=== PATIENT | female | born 1930 | race Caucasian/White ===

== ENCOUNTER 2018-10-12 09:32 | Emergency (ER) | payer OTHER ==
[2018-10-12] MEDS ORDERED: ONDANSETRON 4 MG/2 ML VIAL IVP ONE (09:45)
[2018-10-12 10:03] LABS: PLATELET COUNT 307 10^3/uL (150-400)
[2018-10-12] MEDS ORDERED: IOPAMIDOL (ISOVUE-300) 100 ML BTL ONE (10:10)
--- NOTE | 2018-10-12 11:52 | EDPHY ---
H & P Stated Complaint: Nausea/weakness Time Seen by Provider: 10/12/18 09:38 HPI/ROS: CHIEF COMPLAINT: "I'm dizzy" HISTORY OF PRESENT ILLNESS: 88-year-old female history of dementia, arrives via ambulance with her who provides history. They arrived from the home. reports that the patient awoke this morning repeatedly saying "I' m dizzy, I'm dizzy". Unable provide further information. notes that since approximately January 2018 patient has had increased difficulty getting around home, decreased nutrition, decreased hydration, increasingly challenging to care for the patient. notes that the patient has been increasingly difficult to care for, has had progressive concerns over malnutrition for the past 6-8 months. PRIMARY CARE PROVIDER: Joaquin REVIEW OF SYSTEMS: 10 systems reviewed and negative with the exception of the elements mentioned in the history of present illness PAST MEDICAL & SURGICAL HISTORY: Dementia. SOCIAL HISTORY: Lives with at home PHYSICAL EXAM (Prior to examination, patient consented to physical exam, hands were washed and my usual and customary physical exam procedures followed) 1) GENERAL: Well-developed, well-nourished, alert . Repeatedly stating "I'm dizzy, I'm dizzy" Appears to be in no acute distress. 2) HEAD: Normocephalic, atraumatic 3) HEENT: Pupils equal, round, reactive to light bilaterally. Sclera anicteric. Nasopharynx, oropharynx, clear, no lesions. Moist Mucous membranes. No nystagmus Ears bilaterally with normal tympanic membranes. 4) NECK: Full range of motion, no meningeal signs. 5) LUNGS: Clear auscultation bilaterally, no wheezes, no rhonchi, no retractions. 6) HEART: Regular rate and rhythm, no murmur, no heave, no gallop. 7) ABDOMEN: No distension. No visible abnormality. Diffusely tender to palpation all quadrants with light touch. No lesions no vesicles. 8) MUSCULOSKELETAL: Moving all extremities, no focal areas of tenderness, no obvious trauma. No peripheral edema or discoloration. 9) BACK: No CVA tenderness, no midline vertebral tenderness, no fluctuance, no step-off, no obvious trauma, no visual or palpable abnormality. 10) SKIN: No rash, no petechiae. 11) Psychiatric: Patient intermittently agitated 12) NEURO: answers questions appropriately. There were no obvious focal neurologic abnormalities. No cerebellar dysfunction. Cranial nerves 2 through to 12 intact. Unable to ambulate without assistance Upper and lower extremities bilaterally with strength 5 / 5, reflexes 2+. DIFFERENTIAL DIAGNOSIS: In no particular order, including but not limited to subarachnoid hemorrhage, migraine headache, tension headache and infectious causes such as meningitis, pharyngitis and sinusitis cerebellar infarct, - Personal History Current Tetanus/Diphtheria Vaccine: Yes - Medical/Surgical History Hx Asthma: No Hx Chronic Respiratory Disease: No Hx Diabetes: No Hx Cardiac Disease: No Hx Renal Disease: No Hx Cirrhosis: No Hx Alcoholism: No Other PMH: GERD - Social History Smoking Status: Never smoked Constitutional: Initial Vital Signs Temperature (C) 36.5 C 10/12/18 09:36 Heart Rate 59 L 10/12/18 09:36 Respiratory Rate 18 10/12/18 09:36 Blood Pressure 129/71 H 10/12/18 09:36 O2 Sat (%) 98 10/12/18 09:36 O2 Delivery Mode Room Air Allergies/Adverse Reactions: No Known Allergies Allergy (Unverified 10/12/18 09:44) Home Medications: Medication Instructions Recorded Beta-Carotene(A) W-C & E/Min 1 tab PO DAILY 10/12/18 [Ocuvite] Calcium Carbonate/Vitamin D3 1 each PO DAILY 10/12/18 [Calcium 600 + D3 Softgel] Cholecalciferol Vit D3 [Vitamin D3 1,000 units PO DAILY 10/12/18 (*)] Multivitamins [Multivitamin (*)] 1 each PO DAILY 10/12/18 Omeprazole 40 mg PO DAILY 10/12/18 Medical Decision Making - Diagnostics Imaging Results: Imaging Impressions Chest X-Ray 10/12/18 09:53 Impression: Mild hyperexpansion compatible with COPD with no evidence of pneumonia or pleural effusion.. Abdomen CT 10/12/18 09:54 Impression: 1. There is a small hiatal hernia. 2. Constipation, particularly pronounced at the level of the rectosigmoid. 3. There is no intra-abdominal fluid collection, or pneumoperitoneum. Findings were discussed with Koby Andrade PA-C at 11:44, on 10/12/2018. Head CT 10/12/18 09:54 Impression: 1. Senescent features, with no acute intracranial abnormality identified on this unenhanced CT evaluation. 2. Mild chronic right maxillary, ethmoid, and frontal paranasal sinus mucosal thickening. If there is further clinical concern regarding the patient's symptoms, MR imaging is suggested, if not otherwise contraindicated. Findings were discussed with Kat Andrade at 11:11, on 10/12/2018. ED Course/Re-evaluation: 9:45 p.m.: The patient has complaints of feeling dizzy. She is challenging to obtain an history of present illness from possibly due to her dementia history. She has no complaints of abdominal discomfort however when I palpate her abdomen she winces in pain with palpation of all quadrants. I recommended diagnostic studies including, but not limited to, EKG, CT of the head and abdomen. Anticipate she will necessitate MRI however will move forward with CT imaging 1st. The also notes progressive ability to care for self and care for the patient, notes progressive decline in nutritional and hydration status. He would like to discuss nursing facility. 11:50 a.m.: Consultation with Joaquin who request patient stay at [facility] 11:57 a.m.: Consultation with hospitalist Beverly, admit to 12:49 p.m.: I was called the patient's bedside as the patient, her and her daughter all requested to be discharged. They are declining the MRI, declining hospital admission. They have been informed of the risks of declining this including, but not limited to, non diagnosis of acute pathology such as, but not limited to, cerebellar infarct. In prior conversation with the he had expressed concern over the patient's nutritional and hydration status over the past several months and decreased ability to care for her. At this time he states that he feels comfortable caring for her and the daughter will assist in this as well. 1:30 p.m.: senior audit manager has spoken with the family as well. The family feels confident they are able to care for the patient at home. - Data Points Laboratory Results: Laboratory Results 10/12/18 09:30 10/12/18 09:30 10/12/18 10/12/18 10/12/18 10:40 10:03 09:59 WBC RBC Hgb POC Hgb 12.9 gm/dL gm/dL (12.6-16.3) Hct POC Hct 38 % % (38-47) MCV MCH MCHC RDW Plt Count MPV Neut % (Auto) Lymph % (Auto) [place] % (Auto) Eos % (Auto) Baso % (Auto) Nucleat RBC Rel Count Absolute Neuts (auto) Absolute Lymphs (auto) Absolute Monos (auto) Absolute Eos (auto) Absolute Basos (auto) Absolute Nucleated RBC Immature Gran % Immature Gran # POC Sodium 140 mEq/L mEq/L (135-145) Sodium POC Potassium 3.1 mEq/L L mEq/L (3.3-5.0) Potassium POC Chloride 105 mEq/L mEq/L (97-110) Chloride Carbon Dioxide Anion Gap POC BUN 10 mg/dL mg/dL (7-23) BUN Creatinine POC Creatinine 0.6 mg/dL mg/dL (0.6-1.0) Estimated GFR Glucose POC Glucose 118 mg/dL H mg/dL (70-100) Calcium Total Bilirubin Conjugated Bilirubin Unconjugated Bilirubin AST ALT Alkaline Phosphatase POC Troponin I 0.01 ng/mL ng/mL (0.00-0.08) Total Protein Albumin Lipase Urine Color YELLOW Urine Appearance HAZY Urine pH 7.0 (5.0-7.5) Ur Specific [place] 1.011 (1.002-1.030) Urine Protein NEGATIVE (NEGATIVE) Urine Ketones TRACE H (NEGATIVE) Urine Blood NEGATIVE (NEGATIVE) Urine Nitrate NEGATIVE (NEGATIVE) Urine Bilirubin NEGATIVE (NEGATIVE) Urine Urobilinogen NEGATIVE EU EU (0.2-1.0) Ur Leukocyte Esterase NEGATIVE (NEGATIVE) Urine RBC NONE SEEN /hpf /hpf (0-3) Urine WBC 5-10 /hpf H /hpf (0-3) Ur Epithelial Cells NONE SEEN /lpf /lpf (NONE-1+) Urine Bacteria TRACE /hpf H /hpf (NONE SEEN) Urine Mucus TRACE /lpf /lpf (NONE-1+) Urine Glucose NEGATIVE (NEGATIVE) 10/12/18 10/12/18 09:30 09:30 WBC 5.75 10^3/uL 10^3/uL (3.80-9.50) RBC 4.50 10^6/uL 10^6/uL (4.18-5.33) Hgb 13.2 g/dL g/dL (12.6-16.3) POC Hgb Hct 40.4 % % (38.0-47.0) POC Hct MCV 89.8 fL fL (81.5-99.8) MCH 29.3 pg pg (27.9-34.1) MCHC 32.7 g/dL g/dL (32.4-36.7) RDW 13.6 % % (11.5-15.2) Plt Count 307 10^3/uL 10^3/uL (150-400) MPV 11.2 fL fL (8.7-11.7) Neut % (Auto) 58.8 % % (39.3-74.2) Lymph % (Auto) 31.8 % % (15.0-45.0) [place] % (Auto) 6.8 % % (4.5-13.0) Eos % (Auto) 1.7 % % (0.6-7.6) Baso % (Auto) 0.7 % % (0.3-1.7) Nucleat RBC Rel Count 0.0 % % (0.0-0.2) Absolute Neuts (auto) 3.38 10^3/uL 10^3/uL (1.70-6.50) Absolute Lymphs (auto) 1.83 10^3/uL 10^3/uL (1.00-3.00) Absolute Monos (auto) 0.39 10^3/uL 10^3/uL (0.30-0.80) Absolute Eos (auto) 0.10 10^3/uL 10^3/uL (0.03-0.40) Absolute Basos (auto) 0.04 10^3/uL 10^3/uL (0.02-0.10) Absolute Nucleated RBC 0.00 10^3/uL 10^3/uL (0-0.01) Immature Gran % 0.2 % % (0.0-1.1) Immature Gran # 0.01 10^3/uL 10^3/uL (0.00-0.10) POC Sodium Sodium 136 mEq/L mEq/L (135-145) POC Potassium Potassium 3.8 mEq/L mEq/L (3.5-5.2) POC Chloride Chloride 103 mEq/L mEq/L (97-110) Carbon Dioxide 26 mEq/l mEq/l (22-31) Anion Gap 7 mEq/L mEq/L (6-14) POC BUN BUN 14 mg/dL mg/dL (7-23) Creatinine 0.7 mg/dL mg/dL (0.6-1.0) POC Creatinine Estimated GFR > 60 Glucose 127 mg/dL H mg/dL (70-100) POC Glucose Calcium 9.9 mg/dL mg/dL (8.5-10.4) Total Bilirubin 0.6 mg/dL mg/dL (0.1-1.4) Conjugated Bilirubin 0.2 mg/dL mg/dL (0.0-0.5) Unconjugated Bilirubin 0.4 mg/dL mg/dL (0.0-1.1) AST 19 IU/L IU/L (14-46) ALT 29 IU/L IU/L (9-52) Alkaline Phosphatase 73 IU/L IU/L (38-126) POC Troponin I Total Protein 6.5 g/dL g/dL (6.3-8.2) Albumin 3.5 g/dL g/dL (3.5-5.0) Lipase 90 IU/L IU/L (23-300) Urine Color Urine Appearance Urine pH Ur Specific [place] Urine Protein Urine Ketones Urine Blood Urine Nitrate Urine Bilirubin Urine Urobilinogen Ur Leukocyte Esterase Urine RBC Urine WBC Ur Epithelial Cells Urine Bacteria Urine Mucus Urine Glucose Medications Given: Discontinued Medications Ondansetron HCl (Zofran) 4 mg IVP EDNOW ONE Stop: 10/12/18 09:46 Last Admin: 10/12/18 09:51 Dose: 4 mg Point of Care Test Results: Chemistry 10/12/18 10/12/18 10:03 09:59 POC Sodium 140 mEq/L mEq/L (135-145) POC Potassium 3.1 mEq/L L mEq/L (3.3-5.0) POC Chloride 105 mEq/L mEq/L (97-110) POC BUN 10 mg/dL mg/dL (7-23) POC Creatinine 0.6 mg/dL mg/dL (0.6-1.0) POC Glucose 118 mg/dL H mg/dL (70-100) POC Troponin I 0.01 ng/mL ng/mL (0.00-0.08) ISTAT H&H 10/12/18 10:03 POC Hgb 12.9 gm/dL gm/dL (12.6-16.3) POC Hct 38 % % (38-47) Departure - Departure Disposition: Home, Routine, Self-Care Clinical Impression: Dizziness Condition: Good
[2018-10-12] MEDS ORDERED: ONDANSETRON DISINTEGRATING 4 MG TAB PO PRN (12:28)
[2018-10-12] MEDS ORDERED: ACETAMINOPHEN 325 MG TAB PO PRN (12:28)
[2018-10-12] MEDS ORDERED: ONDANSETRON 4 MG/2 ML VIAL IVP PRN (12:28)
[2018-10-12] MEDS ORDERED: NS 1,000 ML IV SCH (12:30)
[2018-10-12] MEDS ORDERED: PROTOCOL POTASSIUM 1 DOSE MISC PRN (12:30)
[2018-10-12] MEDS ORDERED: POTASSIUM CL 20 MEQ PKT PO ONE (12:32)
[2018-10-12 13:43] VITALS: BP 124/85
--- NOTE | 2018-10-12 14:03 | ASMTCMCOM ---
CM Note CM Note Notes: Pt presented to the ED via EMS for dizziness. Pt coming from home where she lives with her Bert. Don says he has been concerned for the past 6-8 months re: pt's decreased nutrition and hydration, increased weakness and difficulty getting around the home, and that overall the pt has become more challenging for him to care for by himself. Pt has a history of dementia. Pt was recommended to have an MRI and be admitted but ultimately she declined; pt's , Bert, and daughter, Kimberlee, at bedside and also want to take pt home and now feel comfortable caring for her. Pt has two different types of walkers at home. This CM spoke w/pt, Bert and Kimberlee at bedside and discussed resources for skilled and non-skilled home care; [facility] provided. Pt's PCP is Dr Krystin Oakes at [facility] ([phone]). Pt, Don and Kimberlee aware that they should call first thing on Sunday morning and schedule a followup appt. This CM to followup on Sunday w/Dr Oakes. Date Signed: 10/12/2018 02:02 PM Electronically Signed By:Ginna Noyola RN
--- NOTE | 2018-10-13 22:33 | CPEKG ---
Test Reason : OPEN Blood Pressure : / mmHG Vent. Rate : 054 BPM Atrial Rate : 054 BPM P-R Int : 158 ms QRS Dur : 087 ms QT Int : 467 ms P-R-T Axes : 062 071 058 degrees QTc Int : 443 ms Sinus rhythm Confirmed by Betty Calzada ([id number]) on 10/13/2018 10:33:14 PM Referred By: Confirmed By:Betty Calzada
== END 2018-10-12 13:48 | disposition home or self-care (01) ==
LOC: EDUNIT# → UNDOADMOB 11:57
DX: R42 Dizziness and giddiness (principal); F03.90 Unspecified dementia, unspecified severity, without behavioral disturbance, psychotic disturbance, mood disturbance, and anxiety; K59.00 Constipation, unspecified; K44.9 Diaphragmatic hernia without obstruction or gangrene
CPT/HCPCS: 70450; 71046; 74177; 93005; 96374; 99285; J2405; Q9967; 82435-PO; 82565-PO; 82947-PO; 84132-PO; 84295-PO; 84484-ER; 84520-PO; 85014-ER